=== PATIENT | female | born 1960 | race Caucasian/White ===

== ENCOUNTER 2017-04-13 17:08 | Emergency (ER) | payer BC ==
[~2017-04-13] VITALS: Ht 167.6 cm; Wt 106.0 kg
[~2017-04-13 17:08] MED LIST: BENZ100C84 PO; FLNIN/ NAE; MULT-506 PO; NRV/5 PO; OLME40TA30 PO
[2017-04-13 17:20] VITALS: TEMP 36.5; Ht 167.6 cm; Wt 106.0 kg
--- NOTE | 2017-04-13 17:30 | EMERGENCY ROOM VISIT NOTE ---
History Report prepared by Bo: Sarthak Calzada Under the Supervision of: Dr. Marco Moon M.D. First contact with patient: 17:17 Chief Complaint: SYNCOPE (NEAR SYNCOPE) Stated Complaint: DIZZY, NEAR SYNCOPE History of Present Illness The patient is a 56 year old female who presents to the Emergency Room with complaints of a sudden onset episode of lightheadedness that occurred roughly 1 hour prior to arrival. 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 A few moments later she was standing with her co-workers and became dizzy and light headed. The patient did not lose consciousness. She needed to grab onto the wall next to her to stop from falling. She then sat down to gather herself, and she felt short of breath. After a few deep breaths she start to experience her heart racing, and became diaphoretic. The heart racing did not present with any chest pain. She denies any current headache, nausea, or vomiting. The patient admits that she has not been drinking as much fluids as usual. She continued to mention that she had been having some toothaches recently, but did not experience any pain in her jaw while exerting herself at work today. 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 A total of 10 systems reviewed and were otherwise negative. Past Medical & Surgical Medical Problems: (1) Hypertension Family History Diabetes mellitus Social History Smoking Status: Never Smoker Marital Status: Housing Status: lives with significant other Occupation Status: employed Current/Historical Medications Scheduled Metformin Hcl Er (Glucophage Er), 500 MG PO QPM Multivitamin (Multivitamin), 1 TAB PO DAILY Olmesartan/Hctz (Benicar Hct 40/12.5), 1 TAB PO QPM Allergies Coded Allergies: Bupivacaine (Verified Allergy, Mild, ALLERGY TO EPIDURAL ANESTHESIA, ) Fentanyl (Verified Allergy, Mild, ALLERGY TO EPIDURAL ANESTHESIA, 04/13/17) Uncoded Allergies: CONTRASTMEDIA (Allergy, Mild, ALLERGY TO ORAL CONTRAST, 05/10/09) Physical Exam Vital Signs Date Time Temp Pulse Resp B/P (MAP) Pulse Ox O2 Delivery O2 Flow Rate FiO2 04/13/17 20:48 74 139/72 97 04/13/17 20:10 72 135/86 95 Room Air 04/13/17 17:59 96 112/82 95 Room Air 04/13/17 17:57 72 129/79 75 122/88 79 112/82 04/13/17 17:20 36.5 85 133/78 98 Room Air Physical Exam GENERAL: Patient is in no acute distress. HEENT: No acute trauma, normocephalic atraumatic, mucous membranes moist, no nasal congestion, no scleral icterus. NECK: No stridor, no adenopathy, no meningismus, trachea is midline. LUNGS: Clear to auscultation bilaterally, no wheeze, no rhonchi, breath sounds equal. HEART: Without murmurs gallops or rubs, regular rate and rhythm. ABDOMEN: Soft, nontender, bowel sounds positive, no hernias, no peritonitis. EXTREMITIES: No cyanosis or edema, full range of motion of all the joints without pain or difficulty, no signs for acute trauma. NEUROLOGIC: Oriented x 3, no acute motor or sensory deficits, no focal weakness. SKIN: No rash, no jaundice, no diaphoresis. Medical Decision & Procedures ER Provider Diagnostic Interpretation: Radiology results as stated below per my review and radiologist interpretation: CHEST ONE VIEW PORTABLE CLINICAL HISTORY: Acute change in mental status COMPARISON STUDY: November 2007 FINDINGS: The cardiac and mediastinal contours are normal. There is no evidence of focal pulmonary consolidation. There is no evidence of failure. No pleural effusions are visualized.[ There are persistent calcifications within the proximal left humerus. The findings likely indicate either an old bone infarct or chondroid lesion. IMPRESSION: No active disease in the chest. Electronically signed by: Alex Sauceda M.D. 04/13/2017 5:47 PM Dictated Date/Time: 04/13/2017 5:45 PM Laboratory Results 04/13/17 18:10 Red Blood Count 4.59, Mean Corpuscular Volume 88.9, Mean Corpuscular Hemoglobin 29.4, Mean Corpuscular Hemoglobin Concent 33.1, Mean Platelet Volume 9.8, Neutrophils (%) (Auto) 67.9, Lymphocytes (%) (Auto) 24.3, Monocytes (%) (Auto) 6.3, Eosinophils (%) (Auto) 1.0, Basophils (%) (Auto) 0.4, Neutrophils # (Auto) 5.51, Lymphocytes # (Auto) 1.97, Monocytes # (Auto) 0.51, Eosinophils # (Auto) 0.08, Basophils # (Auto) 0.03 04/13/17 18:10 Test 04/13/17 17:13 04/13/17 18:10 04/13/17 19:15 04/13/17 20:08 Bedside Glucose 109 mg/dl (70-90) White Blood Count 8.11 K/uL (4.8-10.8) Red Blood Count 4.59 M/uL (4.2-5.4) Hemoglobin 13.5 g/dL (12.0-16.0) Hematocrit 40.8 % (37-47) Mean Corpuscular Volume 88.9 fL (80-100) Mean Corpuscular Hemoglobin 29.4 pg (25-34) Mean Corpuscular Hemoglobin Concent 33.1 g/dl (32-36) Platelet Count 235 K/uL (130-400) Mean Platelet Volume 9.8 fL (7.4-10.4) Neutrophils (%) (Auto) 67.9 % Lymphocytes (%) (Auto) 24.3 % Monocytes (%) (Auto) 6.3 % Eosinophils (%) (Auto) 1.0 % Basophils (%) (Auto) 0.4 % Neutrophils # (Auto) 5.51 K/uL (1.4-6.5) Lymphocytes # (Auto) 1.97 K/uL (1.2-3.4) Monocytes # (Auto) 0.51 K/uL (0.11-0.59) Eosinophils # (Auto) 0.08 K/uL (0-0.5) Basophils # (Auto) 0.03 K/uL (0-0.2) RDW Standard Deviation 43.2 fL (36.4-46.3) RDW Coefficient of Variation 13.4 % (11.5-14.5) Immature Granulocyte % (Auto) 0.1 % Immature Granulocyte # (Auto) 0.01 K/uL (0.00-0.02) Anion Gap 8.0 mmol/L (3-11) Est Creatinine Clear Calc Drug Dose 77.9 ml/min Estimated GFR () 74.2 Estimated GFR (Non- 64.0 BUN/Creatinine Ratio 24.9 (10-20) Calcium Level 9.3 mg/dl (8.5-10.1) Total Bilirubin 0.3 mg/dl (0.2-1) Aspartate Amino Transf (AST/SGOT) 18 U/L (15-37) Alanine Aminotransferase (ALT/SGPT) 35 U/L (12-78) Alkaline Phosphatase 105 U/L (45-117) Total Protein 7.7 gm/dl (6.4-8.2) Albumin 3.6 gm/dl (3.4-5.0) Globulin 4.1 gm/dl (2.5-4.0) Albumin/Globulin Ratio 0.9 (0.9-2) Thyroid Stimulating Hormone (TSH) 1.490 uIu/ml (0.300-4.500) Urine Color YELLOW Urine Appearance CLEAR (CLEAR) Urine pH 5.0 (4.5-7.5) Urine Specific [place] 1.025 (1.000-1.030) Urine Protein NEG (NEG) Urine Glucose (UA) NEG (NEG) Urine Ketones NEG (NEG) Urine Occult Blood NEG (NEG) Urine Nitrite NEG (NEG) Urine Bilirubin NEG (NEG) Urine Urobilinogen NEG (NEG) Urine Leukocyte Esterase NEG (NEG) Bedside Troponin I < 0.030 ng/ml (0-0.045) Laboratory results reviewed by me. ECG Indication: other (near syncope) Rate (beats per minute): 75 Rhythm: normal sinus Findings: no acute ischemic change, no ectopy, other (Normal intervals) ED Course 1718: The patient was evaluated in room B7. A complete history and physical exam was performed. 0: The patient's orthostatic vitals were negative at this time. 1934: I checked on the patient at this time, she is doing fine. She is aware that we will get a second troponin level at 1999. She is providing a urine sample now. 2034: Reevaluated the patient. Discussed results and discharge instructions: She verbalized understanding and agreement. The patient is ready for discharge. Medical Decision Differential Diagnosis Includes; Dehydration, dysrhythmia, vasovagal syncope, electrolyte imbalance, anemia, UTI , myocardial infarction, thyroid disorder. There is no leukocytosis or concerning anemia. No significant electrolyte abnormality, kidney failure or hepatitis. The patient appears to be in a euthyroid state. Urinalysis does not show infection. Orthostatic vital signs were negative. EKG shows a normal sinus rhythm, no acute ischemia. Cardiac enzyme testing 2 is not suggestive of acute cardiac injury. Chest x-ray does not show pneumonia or CHF. On exam, there were no focal neurologic deficits. The patient was not toxic or febrile. She was asymptomatic by the time I did my evaluation. The patient presents with a near syncopal spell. She has no complaints at present. Her workup is benign. The cause for the presentation is unclear. I have suggested a family doctor follow-up. If things are worsening, she can return, rest and hydration were encouraged. Medication Reconcilliation Current Medication List: was personally reviewed by me Blood Pressure Screening Patient's blood pressure: Elevated blood pressure Blood pressure disposition: Elevated BP felt to be situational Impression Primary Impression: Near syncope Additional Impression: Dizziness Scribe Attestation The scribe's documentation has been prepared under my direction and personally reviewed by me in its entirety. I confirm that the note above accurately reflects all work, treatment, procedures, and medical decision making performed by me. Departure Information Dispostion Home / Self-Care Referrals Tj Mantilla M.D. 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
--- NOTE | 2017-04-13 17:49 | DIAGNOSTIC IMAGING REPORT ---
CHEST ONE VIEW PORTABLE CLINICAL HISTORY: Acute change in mental status COMPARISON STUDY: November 2007 FINDINGS: The cardiac and mediastinal contours are normal. There is no evidence of focal pulmonary consolidation. There is no evidence of failure. No pleural effusions are visualized.[ There are persistent calcifications within the proximal left humerus. The findings likely indicate either an old bone infarct or chondroid lesion. IMPRESSION: No active disease in the chest. Electronically signed by: Alex Sauceda M.D. 04/13/2017 5:47 PM Dictated Date/Time: 04/13/2017 5:45 PM
[2017-04-13] MEDS ORDERED: OLME40TA30 PO (18:15)
[2017-04-13] MEDS ORDERED: METF500T5 PO (18:15)
[2017-04-13 18:34] LABS: BASO % 0.4 %; BASO ABS # 0.03 K/uL (0-0.2); EOS ABS # 0.08 K/uL (0-0.5); HEMATOCRIT 40.8 % (37-47); HEMOGLOBIN 13.5 g/dL (12.0-16.0); IG# 0.01 K/uL (0.00-0.02); LYMPH % 24.3 %; LYMPH ABS # 1.97 K/uL (1.2-3.4); MEAN CELL VOLUME 88.9 fL (80-100); MEAN CORPUSCULAR HEMOGLOBIN 29.4 pg (25-34); MEAN CORPUSCULAR HGB CONC 33.1 g/dl (32-36); MEAN PLATELET VOLUME 9.8 fL (7.4-10.4); MONO % 6.3 %; MONO ABS # 0.51 K/uL (0.11-0.59); NEUT % 67.9 %; NEUT ABS # 5.51 K/uL (1.4-6.5); PLATELET COUNT 235 K/uL (130-400); RED CELL DISTRIBUTION WIDTH CV 13.4 % (11.5-14.5); RED CELL DISTRIBUTION WIDTH SD 43.2 fL (36.4-46.3); WHITE BLOOD COUNT 8.11 K/uL (4.8-10.8)
[2017-04-13 18:55] LABS: ALBUMIN 3.6 gm/dl (3.4-5.0); CALCIUM 9.3 mg/dl (8.5-10.1); CREATININE 0.98 mg/dl (0.60-1.20)
[2017-04-13 19:06] LABS: TOTAL PROTEIN 7.7 gm/dl (6.4-8.2)
[2017-04-13 20:48] VITALS: BP 139/72; PULSE 74; O2SAT 97
== END 2017-04-13 20:49 | disposition home or self-care (01) ==
LOC: EDBD 17:08 → C.EDB 17:09
DX: R55 Syncope and collapse (principal); I10 Essential (primary) hypertension; Z79.84 Long term (current) use of oral hypoglycemic drugs; Z83.3 Family history of diabetes mellitus

== ENCOUNTER 2018-07-05 16:32 | Observation (INO) ==
[2018-07-05] MEDS ORDERED: ONDANSETRON INJ 2 MG/ML 2 ML VIAL IV STA (16:52)
[2018-07-05] MEDS ORDERED: SODIUM CHLORIDE 0.9% 1000ML 1,000 ML IV SCH (17:00)
[2018-07-05 17:09] LABS: Basophils # (auto) 0.03 K/uL (0-0.2); Basophils % (auto) 0.5 %; Eosinophils % (auto) 1.7 %; Hematocrit (blood only) 38.1 % (37-47); Hemoglobin 12.9 g/dL (12.0-16.0); Immature Granulocytes # (auto) 0.01 K/uL (0.00-0.02); Immature Granulocytes % (auto) 0.2 %; Lymphocytes # (auto) 1.79 K/uL (1.2-3.4); Lymphocytes % (auto) 30.1 %; Mean Corpuscular Hgb Conc 33.9 g/dL (32-36); Mean Corpuscular Volume 87.8 fL (80-100); Mean Platelet Volume 9.2 fL (7.4-10.4); Monocytes # (auto) 0.39 K/uL (0.11-0.59); Monocytes % (auto) 6.6 %; Neutrophils # (auto) 3.63 K/uL (1.4-6.5); Neutrophils % (auto) 60.9 %; Platelet Count 199 K/uL (130-400); RDW Standard Deviation 42.2 fL (36.4-46.3); Red Blood Count 4.34 M/uL (4.2-5.4); White Blood Count 5.95 K/uL (4.8-10.8)
--- NOTE | 2018-07-05 17:13 | XRay Report ---
SINGLE VIEW CHEST CLINICAL HISTORY: Atypical chest pain. FINDINGS: An AP, portable, upright chest radiograph is compared to study dated 04/13/2017 and correlate d with chest CT dated 11/17/2007. The heart is top normal for projection. The mediastinal contour is w ithin normal limits. The lungs and pleural spaces are clear. No pneumothorax is seen. The bony thorax is grossly intact. A benign-appearing sclerotic lesion in the left proximal humerus is unchanged and likely represents an enchondroma. IMPRESSION: No acute cardiopulmonary abnormality. Electronically signed by: Marco Go M.D. 07/05/2018 5:11 PM
[2018-07-05 17:25] LABS: Prothrombin Time 9.8 Seconds (9.0-12.0)
[2018-07-05 17:30] LABS: Alanine Aminotransferase 31 U/L (12-78); Albumin Level 3.5 gm/dl (3.4-5.0); Aspartate Aminotransferase 20 U/L (15-37); BUN Creatinine Ratio 21.6 (10-20); Blood Urea Nitrogen 21 mg/dl (7-18); Carbon Dioxide 31 mmol/L (21-32); Chloride 109 mmol/L (98-107); Creatinine Clr Calc Pharmacy 78.5 ml/min; Est GFR (African American) 73.7; Est GFR (Non-African American) 63.6; Glucose 141 mg/dl (70-99); Potassium 3.6 mmol/L (3.5-5.1); Sodium 144 mmol/L (136-145)
[2018-07-05 17:35] LABS: Albumin Globulin Ratio 0.9 (0.9-2); Alkaline Phosphatase 108 U/L (45-117); Bilirubin,Total 0.2 mg/dl (0.2-1); D Dimer 440 ug/L FEU (0-500); Globulin 3.7 gm/dl (2.5-4.0); Total Protein 7.2 gm/dl (6.4-8.2); Troponin I < 0.015 ng/ml (0-0.045)
--- NOTE | 2018-07-05 19:51 | History & Physical Report ---
Date of Service July 05, 2018 Assessment & Plan (1) Chest pain: -Admit to telemetry -Patient presenting with exertional chest pain times 1 week with associated jaw pain, left arm pain, nausea -Patient was seen in the outpatient clinic today, was scheduled for a stress test and and had labs drawn including a d-dimer which was positive -patient was for to the ER for further evaluation -In the ED, initial troponin negative, EKG without acute ST changes -Noted negative d-dimer here, however given positive d-dimer in clinic and positive family history of blood clots, will rule out PE with CTA chest -If CT negative for PE and troponins remain negative, will order stress test for tomorrow -Risk factors for CAD: HTN, DM (2) Diabetes: -Hgb A1c 6.3 05/2017, will update with a.m. labs -Hold metformin and utilize NovoLog per protocol while hospitalized (3) Hypertension: -BP stable, continue on olmesartan/HCTZ (4) GERD (gastroesophageal reflux disease): -Continue PPI (5) DVT prophylaxis: -SQ Lovenox History of Present Illness Chief Complaint: Chest pain Primary Care Provider: Tj Mantilla 57-year-old female who presents the ED with chest pain. Patient reports her symptoms have been going on for the past 1 week. 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 She describes the pain as located in the left side of her chest. Describes the pain as a grabbing sensation. Pain is severe at times. She also has had associated left arm pain, jaw pain, nausea. She reports that sometimes she feels as though it is hard to take a deep breath however denies specific shortness of breath. No lightheadedness, dizziness, syncopal events. She denies abdominal pain, vomiting, diarrhea. No other recent illnesses, fevers, chills. She denies any urinary symptoms. Patient was seen by an outpatient provider today and had labs drawn that showed an elevated d-dimer. Patient was referred to the ED for further evaluation. In the ED, patient is hemodynamically stable. Initial troponin is negative, EKG was without acute ST changes. D-dimer in the ED is negative. She was given Zofran and IVF. Allergies Allergy/AdvReac Type Severity Reaction Status Date / Time bupivacaine Allergy Mild ALLERGY TO Verified 07/05/18 18:20 EPIDURAL ANESTHESIA fentanyl Allergy Mild ALLERGY TO Verified 07/05/18 18:20 EPIDURAL ANESTHESIA Iodinated Contrast- Oral and Allergy Mild ORAL Verified 07/05/18 20:23 IV Dye CONTRAST - UNKNOWN RXN Home Medications Home Medications Medication Instructions Recorded Confirmed Type acetaminophen [Tylenol Extra 500 mg PO Q6H PRN 07/05/18 07/05/18 History Strength] metformin 500 mg PO HS 07/05/18 07/05/18 History multivitamin 1 tab PO HS 07/05/18 07/05/18 History olmesartan-hydrochlorothiazide 1 tab PO HS 07/05/18 07/05/18 History Past Med/Surg History Medical History H/O: hysterectomy (Chronic) GERD (gastroesophageal reflux disease) (Chronic) Diabetes (Chronic) Hypertension (Chronic) Surgical History H/O tubal ligation (Chronic) Hx of cholecystectomy (Chronic) Family History Mother Diabetes Father Diabetes Brother Clotting disorder History of blood clots Sister Clotting disorder History of blood clots Social History Preferred Language: Albanian Communication Ability: Effective [employer] Required: No Beliefs That Will Affect Care: Sikhism Current Living Situation: Spouse Other Information That Helps Us Care for You: No Feels Safe at Home: Yes Safety Concerns: Feels Safe At This Time Smoking Status: Never smoker Hx Alcohol Use: Yes Hx Substance Use: No Review of Systems ROS per HPI, all other systems reviewed and negative Physical Exam Vital Signs (Past 24 Hours): Last Vital Signs Temp 37.1 C 07/05/18 16:39 Pulse 70 07/05/18 19:28 Resp 23 07/05/18 19:28 BP 142/82 H 07/05/18 19:28 Pulse Ox 95 07/05/18 19:28 Constitutional: WD/WN, vitals as above Eyes: PERRL, conjunctivae normal, anicteric sclerae ENMT: external ear and nose normal, oropharynx normal Respiratory: normal respiratory effort, lungs clear to auscultation Cardiovascular: Rate/Rhythm: regular rate and regular rhythm Vessels: normal peripheral pulses Extremities: no edema Chest (Breasts): Chest: normal inspection of chest (No chest wall tenderness) Gastrointestinal (Abdomen): normal bowel sounds, soft, nontender, no hepatosplenomegaly Musculoskeletal: no cyanosis or clubbing, extremities motor strength 5/5 Skin: no rashes, warm and dry Neurologic: PERRL, EOMI, accommodation nl, no face palsy, no dysarthria Psychiatric: A+Ox3, euthymic affect Results & Data Laboratory Results Laboratory Last Values WBC 5.95 K/uL (4.8-10.8) 07/05/18 16:56 RBC 4.34 M/uL (4.2-5.4) 07/05/18 16:56 Hgb 12.9 g/dL (12.0-16.0) 07/05/18 16:56 Hct 38.1 % (37-47) 07/05/18 16:56 MCV 87.8 fL (80-100) 07/05/18 16:56 MCH 29.7 pg (25-34) 07/05/18 16:56 MCHC 33.9 g/dL (32-36) 07/05/18 16:56 RDW Std Deviation 42.2 fL (36.4-46.3) 07/05/18 16:56 RDW Coeff of Abdoul 13.0 % (11.5-14.5) 07/05/18 16:56 Plt Count 199 K/uL (130-400) 07/05/18 16:56 MPV 9.2 fL (7.4-10.4) 07/05/18 16:56 Immature Gran % (Auto) 0.2 % 07/05/18 16:56 Neut % (Auto) 60.9 % 07/05/18 16:56 Lymph % (Auto) 30.1 % 07/05/18 16:56 [place] % (Auto) 6.6 % 07/05/18 16:56 Eos % (Auto) 1.7 % 07/05/18 16:56 Baso % (Auto) 0.5 % 07/05/18 16:56 Immature Gran # (Auto) 0.01 K/uL (0.00-0.02) 07/05/18 16:56 Neut # (Auto) 3.63 K/uL (1.4-6.5) 07/05/18 16:56 Lymph # (Auto) 1.79 K/uL (1.2-3.4) 07/05/18 16:56 [place] # (Auto) 0.39 K/uL (0.11-0.59) 07/05/18 16:56 Eos # (Auto) 0.10 K/uL (0-0.5) 07/05/18 16:56 Baso # (Auto) 0.03 K/uL (0-0.2) 07/05/18 16:56 PT 9.8 Seconds (9.0-12.0) 07/05/18 16:56 INR 1.0 (0.9-1.1) 07/05/18 16:56 D-Dimer 440 ug/L FEU (0-500) 07/05/18 16:56 Sodium 144 mmol/L (136-145) 07/05/18 16:56 Potassium 3.6 mmol/L (3.5-5.1) 07/05/18 16:56 Chloride 109 mmol/L (98-107) H 07/05/18 16:56 Carbon Dioxide 31 mmol/L (21-32) 07/05/18 16:56 Anion Gap 4.0 (3-11) 07/05/18 16:56 BUN 21 mg/dl (7-18) H 07/05/18 16:56 Creatinine 0.98 mg/dl (0.6-1.2) 07/05/18 16:56 Est Cr Clr Drug Dosing 78.5 ml/min 07/05/18 16:56 Est GFR ( Amer) 73.7 07/05/18 16:56 Est GFR (Non-Af Amer) 63.6 07/05/18 16:56 BUN/Creatinine Ratio 21.6 (10-20) H 07/05/18 16:56 Glucose 141 mg/dl (70-99) H 07/05/18 16:56 Calcium 9.0 mg/dl (8.5-10.1) 07/05/18 16:56 Total Bilirubin 0.2 mg/dl (0.2-1) 07/05/18 16:56 AST 20 U/L (15-37) 07/05/18 16:56 ALT 31 U/L (12-78) 07/05/18 16:56 Alkaline Phosphatase 108 U/L (45-117) 07/05/18 16:56 Troponin I < 0.015 ng/ml (0-0.045) 07/05/18 16:56 Total Protein 7.2 gm/dl (6.4-8.2) 07/05/18 16:56 Albumin 3.5 gm/dl (3.4-5.0) 07/05/18 16:56 Globulin 3.7 gm/dl (2.5-4.0) 07/05/18 16:56 Albumin/Globulin Ratio 0.9 (0.9-2) 07/05/18 16:56 Lipase 149 U/L (73-393) 07/05/18 16:56 Diagnostic Findings CXR IMPRESSION: No acute cardiopulmonary abnormality. Code Status & VTE Plan VTE Prophylaxis Plan VTE Prophylaxis will be ordered: Yes Supervising Physician Co-Signing Physician Notes Attending Addendum: The patient was seen and examined She was admitted with an left-sided chest pain which has been going on for 1 week Surgery the pain is associated with some neck pain and also pain involving the left upper extremity on the ulnar side but no shortness of breath She was feeling a lot better during the examination On examination No apparent distress at rest Hemodynamically stable Chest -clear to auscultate bilaterally Heart-S1-S2 regular no murmur appreciated Abdomen-Benign Extremities-Negative for any edema Admission labs, EKG and imaging studies reviewed CTA to rule out pulmonary embolism Serial cardiac enzymes and EKG to rule out ACS Possible stress test in the morning Agree with assessment and plan as outlined above by Maida Layton
[2018-07-05] MEDS ORDERED: ACETAMINOPHEN 325 MG TAB PO PRN (20:04)
[2018-07-05] MEDS ORDERED: GLUCOSE 40% GEL 15 GM TUBE PO PRN (20:04)
[2018-07-05] MEDS ORDERED: CARBOHYDRATES FOR HYPOGLYCEMIA PO PRN (20:04)
[2018-07-05] MEDS ORDERED: GLUCAGON FOR INJ 1 MG VIAL SQ PRN (20:04)
[2018-07-05] MEDS ORDERED: GLUCOSE 10 TABS/TUBE PO PRN (20:04)
[2018-07-05] MEDS ORDERED: NITROGLYCERIN SL 0.4 MG/TAB TAB SL PRN (20:04)
[2018-07-05] MEDS ORDERED: DEXTROSE 50% 50 ML SYRINGE IV PRN (20:04)
[2018-07-05] MEDS ORDERED: OPTIRAY 320 125ml IV PRN (20:50)
[2018-07-05] MEDS ORDERED: MULTIVITAMIN TAB PO SCH (21:00)
[2018-07-05] MEDS ORDERED: ENOXAPARIN INJ 40 MG/0.4 ML SYR SQ SCH (21:00)
[2018-07-05] MEDS ORDERED: hydroCHLOROthiazide 25 MG TAB PO SCH (21:00)
[2018-07-05] MEDS ORDERED: OLMESARTAN MEDOXOMIL 40 MG TAB PO SCH (21:00)
--- NOTE | 2018-07-05 21:06 | CT Scan Report ---
CHEST CTA for PULMONARY ARTERIES CT DOSE: 610.51 mGy.cm HISTORY: Left-sided chest pain. TECHNIQUE: Multiaxial CT images of the chest were performed following the intravenous administration of contrast to evaluate the pulmonary arteries. Maximal intensity projection images were also obtaine d. A dose lowering technique was utilized adhering to the principles of ALARA. COMPARISON STUDY: Chest CTA 11/17/2007. FINDINGS: The visualized liver, spleen, and adrenal glands are unremarkable. No mediastinal or hilar lymphadenopathy. The heart is normal in size. No pleural or pericardial effusions. Stable sclerotic l esion within the left humeral neck. This favors a benign cartilaginous lesion. The central airways ar e patent. No pneumothorax. The lungs are clear. Normal caliber thoracic aorta with no evidence for di ssection. No filling defects within the pulmonary arteries to suggest pulmonary bolus. IMPRESSION: No evidence for pulmonary embolus. Electronically signed by: Kashif Hassan M.D. 07/05/2018 9:05 PM
[2018-07-05] MEDS: INSULIN ASPART 100 UNITS/ML 3 ML PEN SC SCH (21:45)
[2018-07-05] MEDS ORDERED: ASPIRIN 81 MG ECTAB PO ONE (22:45)
--- NOTE | 2018-07-05 23:25 | Emergency Department Note ---
Entered by Rona Whelan acting as a scribe for Jose De Jesus Foley DO History of Present Illness General Chief complaint: Chest Pain Stated complaint: CHEST PAIN, CRAMPS IN SHOULDER Source: patient Mode of arrival: ambulatory Limitations: no limitations History of Present Illness Provider complaint: chest pain Onset (ago): week(s) 1 Location: chest Radiation: back Pain Consistency: + intermittent Maximum Pain Intensity: 4 Quality: + other (cramp-like) Relieved By: + rest Exacerbated By: + movement Associated symptoms: + other (left shoulder tingling, jaw pain); no shortness of breath The patient is a 57 year old female who presents to the Emergency Room with complaints of an intermittent chest pain that began a week ago. The patient d escribes the pain as cramp-like and reports that the episodes only last a few seconds. She states that she has had left shoulder tingling as well as right- sided jaw pain. She notes that rest relieves her pain and exertion worsens it. The patient denies a history of hyperlipidemia, CAD, DVT, sudden at a young age, and smoking but notes she does have a history of diabetes and hypertension. She also denies any shortness of breath. No other exacerbating or remitting factors. Home Medications Home Medications Medication Instructions Recorded Confirmed Type acetaminophen [Tylenol Extra 500 mg PO Q6H PRN 07/05/18 07/05/18 History Strength] metformin 500 mg PO HS 07/05/18 07/05/18 History multivitamin 1 tab PO HS 07/05/18 07/05/18 History olmesartan-hydrochlorothiazide 1 tab PO HS 07/05/18 07/05/18 History Allergies Allergy/AdvReac Type Severity Reaction Status Date / Time bupivacaine Allergy Mild ALLERGY TO Verified 07/05/18 18:20 EPIDURAL ANESTHESIA fentanyl Allergy Mild ALLERGY TO Verified 07/05/18 18:20 EPIDURAL ANESTHESIA Iodinated Contrast- Oral and Allergy Mild ORAL Verified 07/05/18 20:23 IV Dye CONTRAST - UNKNOWN RXN Past Med/Surg History Medical History H/O: hysterectomy (Chronic) GERD (gastroesophageal reflux disease) (Chronic) Diabetes (Chronic) Hypertension (Chronic) Surgical History H/O tubal ligation (Chronic) Hx of cholecystectomy (Chronic) Family History Mother Diabetes Father Diabetes Brother Clotting disorder History of blood clots Sister Clotting disorder History of blood clots Social History Preferred Language: [place] Communication Ability: Effective 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 and A total of 10 systems reviewed and were otherwise negative Physical Exam Vital Signs Vital Signs - 24 hr 07/05/18 16:39 07/05/18 17:19 07/05/18 18:51 Temperature 37.1 C Temperature Source Oral Sepsis Recent Fever Within 48 Hours No Sepsis New/Unexplained Change in Mental Status No Sepsis Action Taken by Nursing No Action Required Pulse Rate 80 Pulse Rate [Apical] Pulse Rate [Left Finger] 72 69 Respiratory Rate 18 23 15 Respiratory Effort / Characteristics Non-Labored Non-Labored Non-Labored Respiratory Depth Normal Normal Normal Respiratory Pattern Regular Regular Blood Pressure 150/95 H Blood Pressure [Right Arm] 144/82 H 138/78 Blood Pressure Mean 113 Blood Pressure Mean [Right Arm] 102 98 Pulse Oximetry 97 95 97 Oxygen Delivery Method Room Air Room Air Room Air 07/05/18 19:28 07/05/18 19:57 07/05/18 20:15 Temperature 37 C Temperature Source Oral Sepsis Recent Fever Within 48 Hours Sepsis New/Unexplained Change in Mental Status Sepsis Action Taken by Nursing Pulse Rate 70 Pulse Rate [Apical] 66 Pulse Rate [Left Finger] Respiratory Rate 23 14 Respiratory Effort / Characteristics Respiratory Depth Respiratory Pattern Blood Pressure 142/82 H Blood Pressure [Right Arm] 142/83 H Blood Pressure Mean Blood Pressure Mean [Right Arm] 102 Pulse Oximetry 95 95 Oxygen Delivery Method Room Air Room Air Room Air GENERAL: Sitting up in bed, alert, well appearing, well nourished, no distress, non-toxic EYE EXAM: normal conjunctiva. OROPHARYNX: no exudate, no erythema, lips, buccal mucosa, and tongue normal and mucous membranes are moist NECK: supple, no nuchal rigidity, no adenopathy, non-tender LUNGS: Clear to auscultation. Normal chest wall mechanics HEART: no murmurs, S1 normal and S2 normal ABDOMEN: abdomen soft, non-tender, normo-active bowel, sounds, no masses, no rebound or guarding. BACK: Back is symmetrical on inspection and there is no deformity, no midline tenderness, no CVA tenderness. SKIN: no rashes and no bruising UPPER EXTREMITIES: upper extremities are grossly normal. LOWER EXTREMITIES: No pitting edema. Calves are equal bilaterally. NEURO EXAM: Normal sensorium, cranial nerves II-XII grossly intact, normal speech, no gross weakness of arms, no gross weakness of legs. Course ED COURSE: Vital signs were reviewed and the patient is hypertensive. The patients medical record was reviewed The above diagnostic studies were performed and reviewed. ED treatments and interventions as stated above. 1648: The patient was evaluated in room C2B. A complete history and physical examination was performed. 1742: I discussed my findings with the patient and she understands and agrees with the treatment plan. Based on the patients age, coexisting illnesses, exam and lab findings the decision to treat as an inpatient was made. The patient remained stable while under my care. The patient will be evaluated for further management. Administered Medications Enoxaparin Sodium (Lovenox) 40 mg SQ Q24H RAY Stop: 08/04/18 20:59 Last Admin: 07/05/18 21:42 Dose: 40 mg Documented by: [id number] Hydrochlorothiazide (Hctz) 12.5 mg PO HS RAY Stop: 08/04/18 20:59 Last Admin: 07/05/18 21:41 Dose: 12.5 mg Documented by: [id number] Insulin Aspart (Novolog Flexpen) 0 units SC ACHS RAY Stop: 08/04/18 20:59 Last Admin: 07/05/18 21:45 Dose: 5 units Documented by: [id number] Cosigned by: [id number] Ioversol (Optiray 320 125ml) 95 ml IV ONCE PRN PRN Reason: Interaction Checking Stop: 07/09/18 20:49 Last Admin: 07/05/18 20:51 Dose: 95 ml Documented by: [id number] Multivitamins (Multivitamin Tab) 1 tab PO HS RAY Stop: 08/04/18 20:59 Last Admin: 07/05/18 21:41 Dose: 1 tab Documented by: [id number] Olmesartan (Benicar) 40 mg PO [facility] Stop: 08/04/18 20:59 Last Admin: 07/05/18 21:42 Dose: 40 mg Documented by: [id number] Discontinued Medications Sodium Chloride (Nss 1000ml) 1,000 mls @ 999 mls/hr IV .Q1H1M RAY Stop: 07/05/18 18:00 Last Infusion: 07/05/18 18:23 Dose: 0 mls/hr Documented by: [id number] Admin: 07/05/18 17:16 Dose: 999 mls/hr Documented by: [id number] Ondansetron HCl (Zofran) 4 mg IV NOW STA Stop: 07/05/18 16:53 Last Admin: 07/05/18 18:52 Dose: Not Given Documented by: [id number] Medical Decision Making Differential Diagnosis Differential diagnosis includes but is not limited to: GERD, esophageal spasm, cholecystitis, acute coronary syndrome, myocardial infarction, pericarditis, pulmonary embolus, aortic dissection, pneumonia, pneumothorax, and musculoskeletal, and shingles. Home Medications Current Medication List: was personally reviewed by me Laboratory Data Attestation: I reviewed the patient's lab results. Result diagrams: 07/05/18 16:56 07/05/18 16:56 Lab Results 07/05/18 07/05/18 07/05/18 Range/Units 16:56 16:56 16:56 WBC 5.95 (4.8-10.8) K/uL RBC 4.34 (4.2-5.4) M/uL Hgb 12.9 (12.0-16.0) g/dL Hct 38.1 (37-47) % MCV 87.8 (80-100) fL MCH 29.7 (25-34) pg MCHC 33.9 (32-36) g/dL RDW Std Deviation 42.2 (36.4-46.3) fL RDW Coeff of Abdoul 13.0 (11.5-14.5) % Plt Count 199 (130-400) K/uL MPV 9.2 (7.4-10.4) fL Immature Gran % (Auto) 0.2 % Neut % (Auto) 60.9 % Lymph % (Auto) 30.1 % Hunt % (Auto) 6.6 % Eos % (Auto) 1.7 % Baso % (Auto) 0.5 % Immature Gran # (Auto) 0.01 (0.00-0.02) K/uL Neut # (Auto) 3.63 (1.4-6.5) K/uL Lymph # (Auto) 1.79 (1.2-3.4) K/uL Hunt # (Auto) 0.39 (0.11-0.59) K/uL Eos # (Auto) 0.10 (0-0.5) K/uL Baso # (Auto) 0.03 (0-0.2) K/uL PT (9.0-12.0) Seconds INR (0.9-1.1) D-Dimer 440 (0-500) ug/L FEU Sodium 144 (136-145) mmol/L Potassium 3.6 (3.5-5.1) mmol/L Chloride 109 H (98-107) mmol/L Carbon Dioxide 31 (21-32) mmol/L Anion Gap 4.0 (3-11) BUN 21 H (7-18) mg/dl Creatinine 0.98 (0.6-1.2) mg/dl Est Cr Clr Drug Dosing 78.5 ml/min Est GFR ( Amer) 73.7 Est GFR (Non-Af Amer) 63.6 BUN/Creatinine Ratio 21.6 H (10-20) Glucose 141 H (70-99) mg/dl POC Glucose (70-99) Calcium 9.0 (8.5-10.1) mg/dl Total Bilirubin 0.2 (0.2-1) mg/dl AST 20 (15-37) U/L ALT 31 (12-78) U/L Alkaline Phosphatase 108 (45-117) U/L Troponin I < 0.015 (0-0.045) ng/ml Total Protein 7.2 (6.4-8.2) gm/dl Albumin 3.5 (3.4-5.0) gm/dl Globulin 3.7 (2.5-4.0) gm/dl Albumin/Globulin Ratio 0.9 (0.9-2) Lipase 149 (73-393) U/L 07/05/18 07/05/18 07/05/18 Range/Units 16:56 20:21 21:49 WBC (4.8-10.8) K/uL RBC (4.2-5.4) M/uL Hgb (12.0-16.0) g/dL Hct (37-47) % MCV (80-100) fL MCH (25-34) pg MCHC (32-36) g/dL RDW Std Deviation (36.4-46.3) fL RDW Coeff of Abdoul (11.5-14.5) % Plt Count (130-400) K/uL MPV (7.4-10.4) fL Immature Gran % (Auto) % Neut % (Auto) % Lymph % (Auto) % Hunt % (Auto) % Eos % (Auto) % Baso % (Auto) % Immature Gran # (Auto) (0.00-0.02) K/uL Neut # (Auto) (1.4-6.5) K/uL Lymph # (Auto) (1.2-3.4) K/uL Hunt # (Auto) (0.11-0.59) K/uL Eos # (Auto) (0-0.5) K/uL Baso # (Auto) (0-0.2) K/uL PT 9.8 (9.0-12.0) Seconds INR 1.0 (0.9-1.1) D-Dimer (0-500) ug/L FEU Sodium (136-145) mmol/L Potassium (3.5-5.1) mmol/L Chloride (98-107) mmol/L Carbon Dioxide (21-32) mmol/L Anion Gap (3-11) BUN (7-18) mg/dl Creatinine (0.6-1.2) mg/dl Est Cr Clr Drug Dosing ml/min Est GFR ( Amer) Est GFR (Non-Af Amer) BUN/Creatinine Ratio (10-20) Glucose (70-99) mg/dl POC Glucose 122 H (70-99) Calcium (8.5-10.1) mg/dl Total Bilirubin (0.2-1) mg/dl AST (15-37) U/L ALT (12-78) U/L Alkaline Phosphatase (45-117) U/L Troponin I < 0.015 (0-0.045) ng/ml Total Protein (6.4-8.2) gm/dl Albumin (3.4-5.0) gm/dl Globulin (2.5-4.0) gm/dl Albumin/Globulin Ratio (0.9-2) Lipase (73-393) U/L Imaging Data Radiologist's Impression: Radiology results as stated below per my review and the radiologist's interpretation: SINGLE VIEW CHEST CLINICAL HISTORY: Atypical chest pain. FINDINGS: An AP, portable, upright chest radiograph is compared to study dated 04/13/2017 and correlated with chest CT dated 11/17/2007. The heart is top normal for projection. The mediastinal contour is within normal limits. The lungs and pleural spaces are clear. No pneumothorax is seen. The bony thorax is grossly intact. A benign-appearing sclerotic lesion in the left proximal humerus is unchanged and likely represents an enchondroma. IMPRESSION: No acute cardiopulmonary abnormality. Electronically signed by: Marco Go M.D. 07/05/2018 5:11 PM ECG Data Attestation: I personally reviewed and interpreted this ECG as follows: Indication: chest pain Rate (beats per minute): 75 Rhythm: sinus rhythm Findings: + other (normal axis); no PVC Blood Pressure Blood Pressure Findings: Elevated blood pressure Blood Pressure Disposition: further management by hospitalist MDM Narrative Patient is a 57-year-old female who presents the ER for chest pain which is been intermittent since this past Wednesday associate with left arm pain and right jaw pain. She was slightly hypertensive. Labs were obtained and shows no significant leukocytosis or anemia. D-dimer was negative. BMP along with LFTs bilirubin and troponin was unremarkable. Lipase was normal. Chest x-ray was unremarkable. EKG was unchanged from previous. Patient was updated bedside. Patient was given aspirin and fluids. She was admitted to hospitalist for further workup after discussion with both the patient and family. Impression & Plan Chest pain Discharge Plan Visit Data *Final* Discharge Date/Time: 07/05/18 19:28 Chief Complaint: Chest Pain Stated Complaint: CHEST PAIN, CRAMPS IN SHOULDER ED Provider: Jose De Jesus Foley Discharge Problem: Chest pain Patient Disposition: Admitted As Inpatient Discharge Instructions Interventions: ED Discharge Assessment Last Done: 07/05/18 19:28 The scribe's documentation has been prepared under my direction and personally reviewed by me in its entirety. I confirm that the note above accurately reflects all work, treatment, procedures, and medical decision making performed by me.
[2018-07-06 06:11] LABS: Hemoglobin 12.5 g/dL (12.0-16.0); Mean Corpuscular Hgb Conc 32.1 g/dL (32-36); Mean Corpuscular Volume 88.6 fL (80-100); Mean Platelet Volume 9.9 fL (7.4-10.4); Platelet Count 179 K/uL (130-400); RDW Coefficient of Variation 13.1 % (11.5-14.5); RDW Standard Deviation 42.5 fL (36.4-46.3); White Blood Count 5.39 K/uL (4.8-10.8)
[2018-07-06 06:28] LABS: Blood Urea Nitrogen 19 mg/dl (7-18); Calcium 8.5 mg/dl (8.5-10.1); Carbon Dioxide 29 mmol/L (21-32); Chloride 109 mmol/L (98-107); Creatinine Clr Calc Pharmacy 102.5 ml/min; Est GFR (African American) 103.5; Est GFR (Non-African American) 89.3; Glucose 115 mg/dl (70-99); Potassium 3.6 mmol/L (3.5-5.1); Sodium 143 mmol/L (136-145)
[2018-07-06 06:33] LABS: Chol HDL Ratio 5; Cholesterol 210 mg/dl (0-200); HDL Cholesterol 41 mg/dl; LDL Cholesterol Calculated 121 mg/dl; Triglycerides 241 mg/dl (0-150); Troponin I < 0.015 ng/ml (0-0.045); VLDL Cholesterol 48 mg/dl
[2018-07-06 06:38] LABS: Estimated Average Glucose 148 mg/dl; Hemoglobin A1C 6.8 % (4.5-5.6)
[2018-07-06] MEDS: INSULIN ASPART 100 UNITS/ML 3 ML PEN SC SCH ×3 (07:37→17:27)
[2018-07-06] MEDS ORDERED: ASPIRIN 81 MG ECTAB PO SCH (09:00)
--- NOTE | 2018-07-06 16:25 | Discharge Summary ---
Date of Service July 06, 2018 Admission HPI Per Admitting Provider 57-year-old female who presents the ED with chest pain. Patient reports her symptoms have been going on for the past 1 week. 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 She describes the pain as located in the left side of her chest. Describes the pain as a grabbing sensation. Pain is severe at times. She also has had associated left arm pain, jaw pain, nausea. She reports that sometimes she feels as though it is hard to take a deep breath however denies specific shortness of breath. No lightheadedness, dizziness, syncopal events. She denies abdominal pain, vomiting, diarrhea. No other recent illnesses, fevers, chills. She denies any urinary symptoms. Patient was seen by an outpatient provider today and had labs drawn that showed an elevated d-dimer. Patient was referred to the ED for further evaluation. In the ED, patient is hemodynamically stable. Initial troponin is negative, EKG was without acute ST changes. D-dimer in the ED is negative. She was given Zofran and IVF. Admission Exam Per Admitting Provider Constitutional: WD/WN, vitals as above Eyes: PERRL, conjunctivae normal, anicteric sclerae ENMT: external ear and nose normal, oropharynx normal Respiratory: normal respiratory effort, lungs clear to auscultation Cardiovascular: Rate/Rhythm: regular rate and regular rhythm Vessels: normal peripheral pulses Extremities: no edema Chest (Breasts): Chest: normal inspection of chest (No chest wall tenderness) Gastrointestinal (Abdomen): normal bowel sounds, soft, nontender, no hepatosplenomegaly Musculoskeletal: no cyanosis or clubbing, extremities motor strength 5/5 Skin: no rashes, warm and dry Neurologic: PERRL, EOMI, accommodation nl, no face palsy, no dysarthria Psychiatric: A+Ox3, euthymic affect Principal Diagnosis Atypical chest pain Hypertension GERD Diabetes Discharge Exam ROS-No Headache, No Visual Changes, No Nausea, No Vomiting, No Fever, No Chills, No Neck Pain or Stiffness, No Chest Pain, No Palpitations, No SOB, No LAW, No Cough, No Sputum, No Wheezing, No Abdominal Pain, No Diarrhea, No Hematemesis, No Hemoptysis, No Unexpected Weight Loss, No Flank pain, No Melena, No Hematochezia, No Frequency, No Urgency, No Burning, No Hematuria, No Rashes, No Diaphoresis. Appetite is Normal Physical Exam Gen-AAO x 3, NAD, Afebrile Head-NCAT, EOMI, PERRLA, Anicteric Sclera, No Posterior Pharyngeal Erythema Neck-Supple, No JVD, No Thyromegaly, No Masses, No LAD, No Bruits Lungs-Clear to Auscultation Bilaterally, No Rales, No Rhonchi, No Wheezing, No Crepitus Chest-No S4, +S1, +S2, No S3, No Murmurs, No Rubs, No Gallops, No Ectopy Abdomen-Soft, Bowel Sounds Present, Non Tender, Non Distended, No Hepatomegaly, No Splenomegaly, No Palpable Masses, No Rebound, No Rigidity, No Guarding Musculoskeletal-Full Range of Motion Bilaterally, No CVAT Extremities-No Cyanosis, No Clubbing, No Edema Nuero-Cranial Nerves II-XII grossly intact, Motor WNL, DTRs WNL, Strength WNL, Non Focal Psych-Normal Mood Discharge Data Allergies Allergy/AdvReac Type Severity Reaction Status Date / Time bupivacaine Allergy Mild ALLERGY TO Verified 07/05/18 18:20 EPIDURAL ANESTHESIA fentanyl Allergy Mild ALLERGY TO Verified 07/05/18 18:20 EPIDURAL ANESTHESIA Iodinated Contrast- Oral and Allergy Mild ORAL Verified 07/05/18 20:23 IV Dye CONTRAST - UNKNOWN RXN Consultations 07/05/18 17:44 ED Decision to Admit Stat Ordered Studies 07/05/18 20:04 CT angio chest PE protocol Routine Current Diagnoses Type 2 diabetes mellitus without complications (07/05/18) Essential (primary) hypertension (07/05/18) Gastro-esophageal reflux disease without esophagitis (07/05/18) Chest pain, unspecified (07/05/18) Allergies bupivacaine Allergy (Mild, Verified 07/05/18 18:20) ALLERGY TO EPIDURAL ANESTHESIA fentanyl Allergy (Mild, Verified 07/05/18 18:20) ALLERGY TO EPIDURAL ANESTHESIA Iodinated Contrast- Oral and IV Dye Allergy (Mild, Verified 07/05/18 20:23) ORAL CONTRAST - UNKNOWN RXN Height/Weight/Isolation Height 5 ft 6 in Weight 107 kg Chemistry 07/05/18 07/06/18 16:56 05:41 Sodium 144 143 Potassium 3.6 3.6 Chloride 109 H 109 H Carbon Dioxide 31 29 Anion Gap 4.0 5.0 BUN 21 H 19 H Creatinine 0.98 0.74 Glucose 141 H 115 H Hospital Course (1) Chest pain: Cardiac workup negative, stress test negative, troponins are all negative, DC home and follow-up with Dr. Sloan in the office and Dr. Marino in the office (2) Diabetes: Resume outpatient diabetic regimen (3) Hypertension: -BP stable, continue on olmesartan/HCTZ, blood pressure up we will add imdur 30 (4) GERD (gastroesophageal reflux disease): -Continue PPI (5) DVT prophylaxis: Total Time Total Time Spent Total Time Spent (In Minutes): 40 minutes Total Time Includes: Examination of the Patient, Discharge Planning, Medication Reconciliation and Communication With Other Providers Discharge Plan Discharge Items Patient Disposition: Home - Self-Care Reason For Visit: CHEST PAIN Discharge Diagnosis: Atypical chest pain Hypertension GERD Diabetes Condition: Good Discharge Goals: Improve function Activity: Resume your previous activity Lifting: Gradually increase as tolerated Bathing: No limitations Sexual Activity: When tolerated Exercise/Sports: Gradually increase as tolerated Driving/Machine Use: No limitations Weightbearing: Left weightbearing and Right weightbearing Non-emergency contact: Primary Care Provider and [employer] Call non-emergency contact if: you have any medication questions, your symptoms worsen and your pain is unusual for you Follow-up/Referrals: Tj Mantilla [Primary Care Provider] - (Patient already called to make an appointment) Ramez Marino DO [[employer]] - (2-3 weeks) Diet: Carb Consistent or DM2 and Heart Healthy Addtl Provider Instructions: Continues to have left-sided chest pain may need an elective cath. She will follow-up with Dr. Copeland in the office and Dr. Mantilla Prescriptions: New nitroglycerin [Nitrostat] 0.4 mg Tablet, Sublingual 0.4 mg sublingual UD PRN (Reason: chest pain) Qty: 90 RF: 0 aspirin [Ecotrin Low Strength] 81 mg Tablet,Delayed Release (Dr/Ec) 81 mg PO QAM Qty: 90 RF: 0 isosorbide dinitrate 30 mg tablet 30 mg PO BID Qty: 60 RF: 0 Continued multivitamin Tablet 1 tab PO HS RF: 0 acetaminophen [Tylenol Extra Strength] 500 mg Tablet 500 mg PO Q6H PRN (Reason: Pain) RF: 0 metformin 500 mg tablet extended release 24 hr 500 mg PO HS RF: 0 olmesartan-hydrochlorothiazide 40-12.5 mg tablet 1 tab PO HS RF: 0 Stand-Alone Forms: Call Back Authorization, [facility] Discharge Orders: Discharge Order (Routine); Ordered 07/06/18 Ordered By: Charly Pryor Admission Data Admit Date/Time: 07/05/18 18:27 Attending Provider: Charly Pryor Admit Provider: Ortiz Layton Primary Care Provider: Tj Mantilla Other Providers: Ortiz Layton Service: Telemetry
== END 2018-07-06 17:29 | disposition home or self-care (01) ==
LOC: 2E 16:32 → ED 16:32 → SUATTDRO 18:27 → 2E 19:28